=== PATIENT | male | born 1990 ===

== ENCOUNTER → 2023-09-22 08:12 | Outpatient (CLI) | payer BC, SELFPAY ==
--- NOTE | 2023-09-22 | DI.US.S_ITS ---
PROCEDURE: US ABDOMEN LIMITED INDICATIONS: ELEVATED LIVER FUNCTION TESTS TECHNIQUE: Real-time focused scanning was performed of the abdomen, with image documentation. COMPARISON: None. FINDINGS: The liver demonstrates mildly enlarged size. The liver demonstrates generalized moderately to prominently increased echogenicity. This decreases ultrasound sensitivity for detection of hepatic masses. No findings of gallstones or sludge are seen. The gallbladder wall is not thickened, measuring 3 mm or less. No specific pericholecystic fluid is seen. The sonographic Sena sign is negative. There is no biliary dilatation, the common bile duct measures 2 mm. No significant pancreatic abnormality is seen on these images. IMPRESSION: Enlarged, fatty liver. Dictated by: Beka Rivera M.D. on 09/22/2023 at 10:31 Approved by: Beka Rivera M.D. on 09/22/2023 at 10:32
== END ==
PROVIDERS: PCP Internal Medicine; Referring Provider Internal Medicine; Visit Provider Internal Medicine
DX: K76.0 Fatty (change of) liver, not elsewhere classified (principal); R74.01 Elevation of levels of liver transaminase levels
CPT/HCPCS: 76705